=== PATIENT | male | born 1955 | race Two or more races ===

== ENCOUNTER 2019-03-19 11:08 | Outpatient (CLI) | payer OTHER | END 2019-03-19 11:18 | disposition home or self-care (01) | LOC: RAD 11:08 | DX: M25.532 Pain in left wrist (principal) ==

== ENCOUNTER 2019-04-24 09:00 | Outpatient (CLI) | payer OTHER | END 2019-04-24 10:15 | disposition home or self-care (01) | LOC: RAD 09:00 | DX: S52.125D Nondisplaced fracture of head of left radius, subsequent encounter for closed fracture with routine healing (principal) ==

== ENCOUNTER 2019-05-01 07:32 | Outpatient (CLI) | payer OTHER | END 2019-05-01 07:34 | disposition home or self-care (01) | LOC: RAD 07:32 | DX: S52.125G Nondisplaced fracture of head of left radius, subsequent encounter for closed fracture with delayed healing (principal) ==

== ENCOUNTER 2019-07-10 07:34 | Outpatient (CLI) | payer OTHER | END 2019-07-10 07:42 | disposition home or self-care (01) | LOC: RAD 07:34 | PROVIDERS: ATTEND Orthopaedic Surgery | DX: S52.125G Nondisplaced fracture of head of left radius, subsequent encounter for closed fracture with delayed healing (principal) ==

== ENCOUNTER 2019-09-27 21:19 | Emergency (ER) | payer OTHER ==
[~2019-09-27] VITALS: Ht 167.6 cm; Wt 63.5 kg
[2019-09-28] MEDS ORDERED: CELEBREX100 MG PO (14:38)
[2019-09-28] MEDS ORDERED: ORPHENADRINE C100 MG PO (14:38)
[2019-10-07] MEDS ORDERED: MAPAP500 MG (13:27)
== END 2019-09-27 22:58 | disposition home or self-care (01) ==
LOC: ER 21:19
DX: I80.252 Phlebitis and thrombophlebitis of left calf muscular vein (principal)

== ENCOUNTER 2019-09-28 11:13 | Emergency (ER) | payer OTHER ==
[~2019-09-28] VITALS: Ht 167.6 cm; Wt 63.5 kg
[2019-09-28] MEDS ORDERED: ORPHENADRINE C100 MG PO (14:38)
[2019-09-28] MEDS ORDERED: CELEBREX100 MG PO (14:38)
[2019-10-07] MEDS ORDERED: MAPAP500 MG (13:27)
== END 2019-09-28 14:43 | disposition home or self-care (01) ==
LOC: ER 11:13
DX: M79.662 Pain in left lower leg (principal)

== ENCOUNTER 2024-06-16 09:04 | Outpatient (CLI) | payer OTHER ==
[~2024-06-16 09:04] MED LIST: CELEBREX100 MG PO; MAPAP500 MG; ORPHENADRINE C100 MG PO
== END 2024-06-16 09:17 | disposition home or self-care (01) ==
LOC: SONOGRAMA 09:04
PROVIDERS: ATTEND Internal Medicine Cardiovascular Disease
DX: J44.9 Chronic obstructive pulmonary disease, unspecified (principal); R10.9 Unspecified abdominal pain

== ENCOUNTER → 2024-06-17 | Outpatient (CLI) | payer OTHER | END | disposition home or self-care (01) | LOC: NUCLEAR 09:54 | PROVIDERS: ATTEND Internal Medicine Cardiovascular Disease | DX: I10 Essential (primary) hypertension (principal); J44.9 Chronic obstructive pulmonary disease, unspecified ==

== ENCOUNTER 2024-07-08 07:13 | Outpatient (CLI) | payer OTHER | END 2024-07-08 07:14 | disposition home or self-care (01) | LOC: NUCLEAR 07:13 | PROVIDERS: ATTEND Internal Medicine Cardiovascular Disease | DX: K81.9 Cholecystitis, unspecified (principal) | CPT/HCPCS: 78227; A9537 ==